=== PATIENT | female | born 1985 | race Hispanic/Latino ===

== ENCOUNTER 2017-11-11 19:54 | Emergency (ER) | payer OTHER ==
--- NOTE | 2017-11-11 21:39 | C.PDOC ---
History Of Present Illness 32 y/o F c no PMHx p/w palpitations, lightheadedness x 9 hours. Patient took a energy boost sample for the first time this morning and has had the symptoms since about 2 hours after. She denies LOC, nausea, vomiting, dyspnea, abnormal bleeding, trauma. Went to Urgent Care and had negative influenza but instructed to come to ED for further eval. Time Seen by Provider: 11/11/17 21:10 Chief Complaint (Nursing): Palpitations Past Medical History Vital Signs: Last Vital Signs Temp 98.7 F 11/11/17 20:31 Pulse 90 11/11/17 20:31 Resp 20 11/11/17 20:31 BP 129/83 11/11/17 20:31 Pulse Ox 100 11/11/17 20:31 - Medical History PMH: Anxiety, Depression Family History: States: Unknown Family Hx - Social History Hx Alcohol Use: No Hx Substance Use: No - Immunization History Hx Tetanus Toxoid Vaccination: No Hx Influenza Vaccination: No Hx Pneumococcal Vaccination: No Review Of Systems Constitutional: Negative for: Fever Cardiovascular: Negative for: Chest Pain Physical Exam - Physical Exam Additional Physical Exam Comments: Constitutional: No acute distress. Head: Normocephalic. Atraumatic. Eyes: PERRL. EOMI. ENT: Moist mucous membranes. Neck: Supple. Cardiovascular: Regular rate. Radial pulses 2+ bilaterally. Chest: No tenderness. Respiratory: Clear to auscultation bilaterally. GI: Soft. Nontender. Back: No CVA tenderness. Musculoskeletal: No tenderness or swelling of extremities. Skin: No rash. Neurologic: Alert, no focal deficit. ED Course And Treatment O2 Sat by Pulse Oximetry: 100 Medical Decision Making Medical Decision Making: EKG NSR 85 bpm, no ST/T wave changes. Patient appears well, normal vital signs, no hypotension, no shortness of breath , no EKG changes. Offered blood work to check for anemia or electrolyte abnormalities but patient wished to go home and sleep and stated she would come back to hospital if symptoms persist. Disposition - Disposition Disposition: HOME/ ROUTINE Disposition Time: 21:36 Condition: STABLE Instructions: Caffeine Use (ED) Forms: [email or web address] [facility] ([place]ic) - Clinical Impression Clinical Impression: Palpitations
[2017-11-11 22:54] VITALS: BP 120/79; PULSE 88; RESP 20; TEMP 98.5; O2SAT 99
--- NOTE | 2017-11-12 11:02 | CARD ---
APPROVED REPORT EKG Measurement Heart [id number] <Conclusion> Normal sinus rhythm Normal ECG
== END 2017-11-11 22:03 | disposition home or self-care (01) ==
LOC: C.ER 19:54
DX: R00.2 Palpitations (principal)

== ENCOUNTER 2019-02-23 07:48 | Outpatient (CLI) | payer OTHER | END 2019-02-23 07:49 | disposition home or self-care (01) | LOC: C.LAB 07:48 | DX: Z00.00 Encounter for general adult medical examination without abnormal findings (principal) ==